=== PATIENT | female | born 1960 | race Caucasian/White ===

== ENCOUNTER 2020-07-27 07:00 | Day surgery (SDC) | payer BC, SELFPAY ==
--- NOTE | 2020-07-26 09:23 | P.CONAN_ITS ---
Documented by User: Georgia Schreiber 07/26/20 09:25 HPI - Anesthesia Eval Consult details Narrative: 60yo F for Upper Endoscopy and Colonoscopy [facility] Past Medical History Medical History Breast cancer, left GERD (gastroesophageal reflux disease) Surgical History Surgical History H/O: hysterectomy Hx laparoscopic cholecystectomy Status post left breast lumpectomy Social History Social History Smoking Status: Never smoker Second Hand Smoke Exposure: No Use of substances other than those prescribed or required for medical reasons: No Advance Directives: No Advance Directives Information Provided: No Advance Directives on File: No Recently lost weight without trying: No Meds Allergies Allergy/AdvReac Type Severity Reaction Status Date / Time ampicillin Allergy Rash Verified 07/19/20 19:29 codeine Allergy Stomach Verified 07/19/20 19:29 Upset Home Medications Medication Instructions Recorded Confirmed Type omeprazole 40 mg PO DAILY 07/20/20 07/20/20 History Exam Exam Date and Time: July 26, 2020 0923 Height,Weight and Vital Signs: Height 5 ft 4 in Weight 79.379 kg Assessment and Plan Assessment Anesthesia Assessment: Chart Reviewed Documented by User: Nehal El 07/27/20 07:51 [facility] Past Medical History Medical History Breast cancer, left GERD (gastroesophageal reflux disease) Surgical History Surgical History H/O: hysterectomy Hx laparoscopic cholecystectomy Status post left breast lumpectomy Social History Social History Smoking Status: Never smoker Second Hand Smoke Exposure: No Use of substances other than those prescribed or required for medical reasons: No Advance Directives: No Advance Directives Information Provided: No Advance Directives on File: No Recently lost weight without trying: No Meds Allergies Allergy/AdvReac Type Severity Reaction Status Date / Time ampicillin Allergy Rash Verified 07/19/20 19:29 codeine Allergy Stomach Verified 07/19/20 19:29 Upset Home Medications Medication Instructions Recorded Confirmed Type omeprazole 40 mg PO DAILY 07/20/20 07/20/20 History Exam Airway Mallampati Class: I TM Dist: >3cm Neck ROM: Full Loose/Missing/Broken Teeth: No Heart: RRR Lungs: CTA Assessment and Plan Assessment Anesthesia Assessment: Anesthesia Plan Discussed and Chart Reviewed Final Anesthetic Review NPO: Yes ASA Class: II Final Preanesthetic Review: Meds/Allgs Chart Reviewed, Consent Obtained/Reviewed and Anes Risks/Benef Reviewed Patient Risk: Low Procedure Risk: Intermediate Anesthetic Plan Anesthetic Plan: MAC: Disposition: Standard PACU
--- NOTE | 2020-07-27 07:20 | PC.NURSE ---
patient instructed for a self fleet enema. offerred for admin by me but declined. teaching provided.
[2020-07-27 07:27] VITALS: BP 133/76; PULSE 80; RESP 16; TEMP 35.9; O2SAT 98
[2020-07-27] MEDS: Lactated Ringers 1,000 ML 100 ML IVCONT (07:37)
--- NOTE | 2020-07-27 07:53 | PC.NURSE ---
clear outout no solids after enema.
--- NOTE | 2020-07-27 07:58 | MHC.SHP ---
Pre-Procedural Eval Section B Chief Complaint: screening,epigastric pain Details of Present Illness: See H&P no changes Relevant Family History (Specify if Yes): No Relevant Social History: None Present Medications: see Short Stay Collaborative assessment Medical History: No relevant PMH History of Previous Operations: No relevant previous surgery Allergies: Allergies Allergy/AdvReac Type Severity Reaction Status Date / Time ampicillin Allergy Rash Verified 07/19/20 19:29 codeine Allergy Stomach Verified 07/19/20 19:29 Upset Review of Systems Sugical H&P ROS: Negative: Constitution, Cardiovascular, Respiratory, Neurological, Psychiatric, Hem-Onc, Allergic/Immunologic, Gastrointestinal, Genitourinary, Musculoskeletal, Integumentary, Endocrine and Eyes/Ears/Nose/Throat Exam Surgical H&P Exam: Normal: HEENT, Normal: Heart, Normal: Lungs, Normal: Extremities, Normal: Abdomen, Normal: Skin and Normal: Neurological Plan Diagnosis/Plan: Unchanged I have reviewed the history and physical and performed a pertinent physical examination on my patient. No changes have occurred unless specified.
[2020-07-27] MEDS: Sodium Phosphate,Mono-Dibasic 133 ML ENEMA PR (08:05)
[2020-07-27 08:37] VITALS: BP 103/62; PULSE 66; RESP 16; TEMP 36.6; O2SAT 99
--- NOTE | 2020-07-27 08:43 | PM.OP ---
Brief Operative Note Date of Service: 08/03/20 Pre-op diagnosis: epigastric pain, screening Post-op diagnosis: same (erosove gastritis, colon polyp) Procedure: EGD/Colonoscopy Surgeon: Kelvin Benjamin Anesthesia: MAC Estimated blood loss (mL): 5 Pathology: other (antral, egj bxs, gastric polyp bx, colon polyp at 35) Condition: stable Disposition: PACU
[2020-07-27 08:52] VITALS: BP 115/67; PULSE 64; RESP 16; TEMP 36.6; O2SAT 99
--- NOTE | 2020-07-27 09:01 | OP_ITS ---
SURGEON: Kelvin Benjamin MD INDICATIONS: Epigastric pain and colon cancer screening. PREOPERATIVE DIAGNOSIS: POSTOPERATIVE DIAGNOSIS: PROCEDURE PERFORMED: ESTIMATED BLOOD LOSS: COMPLICATIONS: ANESTHESIA: ASSISTANTS: SPECIMENS: PROCEDURES PERFORMED: 1. Upper endoscopy and biopsy. 2. Colonoscopy to the terminal ileum with biopsy. MEDICATIONS: Monitored anesthesia care. DESCRIPTION OF PROCEDURE: History and physical performed. The risks and benefits of the procedure were explained to the patient. Informed consent was obtained. The patient was placed in the left lateral decubitus position. The Olympus video gastroscope was introduced into the esophagus, stomach, and duodenum. Examination was performed. The scope was removed. She was repositioned for colonoscopy. Digital rectal exam was performed and was found to be normal. The Olympus pediatric video colonoscope was introduced into the rectum, advanced to the cecum without difficulty. The cecum was identified by transillumination, palpation, and identification of ileocecal valve. Examination was performed. The scope was removed. She tolerated both procedures well and returned to recovery area in stable condition. FINDINGS: UPPER ENDOSCOPY: Esophagus: The esophagus was normal. Biopsies were obtained from the EG junction. There was no esophagitis. Stomach: Stomach showed a small less than 5-mm gastric polyp, which was removed with biopsy forceps. There was erosive gastritis with a single antral erosion measuring approximately 5 x 10 mm. Biopsies were obtained from the abnormal mucosa. Duodenum: The bulb and second portion were normal. COLONOSCOPY: The terminal ileum was normal. The visualized colonic mucosa was within normal limits without evidence of masses or ulcers. The quality of the prep was good. There was a single polyp at 35 cm that was removed with biopsy forceps measuring less than 5 mm. No other polyps were identified. Retroflexed examination showed hypertrophic anal papillae. IMPRESSION: 1. Gastric polyp. 2. Erosive gastritis. 3. Colon polyp. RECOMMENDATION: Follow up biopsy results. MD ROSALIND Silva/SANDI / [id number]
--- NOTE | 2020-07-27 09:26 | HO.POSTANES ---
Post Anesthesia Evaluation Post Anesthesia Evaluation Vital Signs: Vital Signs Temp Pulse Resp BP Pulse Ox 07/27/20 08:52 98 F 64 16 115/67 99 07/27/20 08:37 98 F 66 16 103/62 99 07/27/20 07:27 96.6 F L 80 16 133/76 98 Anesthesia: Monitored Mental Status: Awake Pain Control: Satisfactory Nausea/Vomiting: None Hydration: Adequate Anesthesia-Related Issues: No Anes. Related Issues
== END 2020-07-27 09:22 | disposition home or self-care (01) ==
PROVIDERS: PCP Internal Medicine Geriatric Medicine; Visit Provider Internal Medicine Gastroenterology
PROC: (CPT 45380; principal; 2020-07-27 08:10)
DX: Z12.11 Encounter for screening for malignant neoplasm of colon (principal); K63.5 Polyp of colon; K29.60 Other gastritis without bleeding; K31.7 Polyp of stomach and duodenum; K21.9 Gastro-esophageal reflux disease without esophagitis; Z90.49 Acquired absence of other specified parts of digestive tract; Z79.899 Other long term (current) drug therapy; Z88.0 Allergy status to penicillin; Z88.8 Allergy status to other drugs, medicaments and biological substances
CPT/HCPCS: 45380; 43239; 88305; 88342